=== PATIENT | female | born 1935 | race Caucasian/White ===

== ENCOUNTER 2016-11-29 13:53 | Emergency (ER) | payer MEDICARE ==
--- NOTE | 2016-11-29 14:31 | ER PHYSICIAN DOCUMENTATION ---
Physician Documentation [facility] Name:Sloane Gallardo Age:81 yrs Sex:Female :1935 Arrival Date:11/29/2016 Time:13:53 Bed6 Private MD:Dena Chinchilla ED, John Disposition: 11/29/16 14:18 Discharged to Home/Self Care. Impression: Back Sprain. - Condition is Good. - Discharge Instructions: BACK SPRAIN/STRAIN. - Prescriptions for Hydrocodone- Acetaminophen 5-325 mg Oral - take 1 tablet by ORAL route every 6 hours As needed; 15 tablet. - Medical Reconciliation form form. - Follow up: Dena Chinchilla DO; When: As needed; Reason: Continuance of care. - Problem is new. - Symptoms have improved. HPI: 11/29 14:00 This 81 yrs old Female presents to ER via Private Vehicle with complaints of jm Back Pain. 14:00 The patient presents with pain that is acute. The symptoms are located in the right jm subscapular area and right mid back. Onset: The symptoms/episode began/occurred 1 week(s) ago. The problem was sustained when lifting heavy object. Historical: - Allergies: PENICILLINS; Lidocaine; Celebrex; Vioxx; TETRACYCLINES; - Home Meds: 1. simvastatin 40 mg oral tab 1 tab once daily in the evening 2. carvedilol 6.25 mg oral tab 1 tab 2 times per day with food 3. spironolactone oral 4. Lasix 20 mg oral tab 1 tab once daily 5. nitroglycerin 0.4 mg sublingual subl 1 tab at the first sign of an attack; no more than 3 tabs are recommended within a 15 minute period. - PMHx: OSTEOPOROSIS; MIGRAINES; ANXIETY; ARTHRITIS; GERD; HYPERTENSION; Peripheral Neuropathy (October 07, 2015); HYPERTENSION; MYOCARDIAL INFARCTION; subdural hemorrhage; hypoxemia; Subdural Hematoma (October 27, 2015); Cervical Radiculopathy (October 12, 2015); New Onset Seizure (November 21, 2015); - PSHx: TONSILLECTOMY; Cardiac Stents placed; - Tetanus: < 10 years. - Ebola Screening: : Patient negative for fever greater than or equal to 101.5 degrees Fahrenheit, and additional compatible Ebola Virus Disease symptoms. - Immunization history: Flu Vaccine None. - Social history: Smoking status: Patient states was never smoker of tobacco. ROS: 14:00 Cardiovascular: Negative for chest pain. 14:00 Abdomen/GI: Negative for abdominal pain. 14:00 Back: Positive for pain at rest, pain with movement, radiated pain. Exam: 14:00 Constitutional: The patient appears alert, awake. 14:00 Back: pain, that is mild, of the right subscapular area and right mid back, vertebral tenderness, is not appreciated. Vital Signs: 14:17 BP 178 / 80; Pulse 62; Resp 17; Temp 98.1(O); Pulse Ox 95% on R/A; Weight 46.72 kg; rh Height 5 ft. 0 in. (152.40 cm); Pain 10/10; 14:17 Body Mass Index 20.12 (46.72 kg, 152.40 cm) rh MDM: 13:58 Patient medically screened. 16:09 Differential diagnosis: sprain. Data reviewed: vital signs, nurses notes, and as a result, I will discharge patient. Counseling: I had a detailed discussion with the patient and/or guardian regarding: the historical points, exam findings, and any diagnostic results supporting the discharge/admit diagnosis. Dispensed Medications: 14:29 Drug: HYDROcodone-acetaminophen 5 mg-325 mg 1 tabs; Route: PO; 14:29 Follow up: Response: No adverse reaction Signatures: Matteo Ritter MD MD jm Hofsess, Rachel
--- NOTE | 2016-11-29 14:31 | ER NURSING DOCUMENTATION ---
Nurse's Notes [facility] Name:Sloane Gallardo Age:81 yrs Sex:Female :1935 Arrival Date:11/29/2016 Time:13:53 Bed6 Private MD:Dena Chinchilla Diagnosis:Back Sprain Presentation: 11/29 13:58 Acuity: LIZZ 3 rh 14:12 Presenting complaint: Patient states: Pt was lifting a tomato box a week ago, she felt rh like she pulled a muscle on the right side of her rib cage below her right breast. Pt states the pain is constant and feels like a muscle cramp. Pt denies SOB. Transition of care: Home. 14:12 Method Of Arrival: Private Vehicle Triage Assessment: 14:16 General: Appears in no apparent distress, Behavior is cooperative. Pain: Complains of rh pain in diaphragm. Respiratory: Breath sounds are clear bilaterally. Denies shortness of breath. Derm: Skin is intact, is healthy with good turgor, Skin is pink, warm & dry. Musculoskeletal: Circulation, motion, and sensation intact Capillary refill < 3 seconds. Historical: - Allergies: PENICILLINS; Lidocaine; Celebrex; Vioxx; TETRACYCLINES; - Home Meds: 1. simvastatin 40 mg oral tab 1 tab once daily in the evening 2. carvedilol 6.25 mg oral tab 1 tab 2 times per day with food 3. spironolactone oral 4. Lasix 20 mg oral tab 1 tab once daily 5. nitroglycerin 0.4 mg sublingual subl 1 tab at the first sign of an attack; no more than 3 tabs are recommended within a 15 minute period. - PMHx: OSTEOPOROSIS; MIGRAINES; ANXIETY; ARTHRITIS; GERD; HYPERTENSION; Peripheral Neuropathy (October 07, 2015); HYPERTENSION; MYOCARDIAL INFARCTION; subdural hemorrhage; hypoxemia; Subdural Hematoma (October 27, 2015); Cervical Radiculopathy (October 12, 2015); New Onset Seizure (November 21, 2015); - PSHx: TONSILLECTOMY; Cardiac Stents placed; - Tetanus: < 10 years. - Ebola Screening: : Patient negative for fever greater than or equal to 101.5 degrees Fahrenheit, and additional compatible Ebola Virus Disease symptoms. - Immunization history: Flu Vaccine None. - Social history: Smoking status: Patient states was never smoker of tobacco. Screenin:18 Infectious Disease Risk None. Abuse screen: Denies threats or abuse. Denies injuries rh from another. Nutritional screening: No deficits noted. Assessment: 14:18 See Triage Assessment done by same RN. Vital Signs: 14:17 BP 178 / 80; Pulse 62; Resp 17; Temp 98.1(O); Pulse Ox 95% on R/A; Weight 46.72 kg; rh Height 5 ft. 0 in. (152.40 cm); Pain 10/10; 14:17 Body Mass Index 20.12 (46.72 kg, 152.40 cm) ED Course: 13:56 Patient arrived in ED. ama 13:56 Dena Chinchilla DO is Private Physician. ama 13:58 Carmelina Heaton is Primary Nurse. 13:58 Triage completed. 13:59 Matteo Ritter MD is Attending Physician. 14:10 Notified ED Physician of patient's arrival and chief complaint. Dr. Ritter notified. 14:17 Dena Chinchilla DO is Referral Physician. 14:18 Valuables Remains with patient Patient has correct armband on for positive rh identification. Placed in gown. Bed in low position. Call light in reach. Side rails up X 1. Family accompanied patient. Administered Medications: 14:29 Drug: HYDROcodone-acetaminophen 5 mg-325 mg 1 tabs; Route: PO; 14:29 Follow up: Response: No adverse reaction rh Outcome: 14:18 Discharge ordered by . 14:29 Discharged to home via wheelchair, with family. 14:29 Condition: improved 14:29 Discharge Assessment: Patient awake, alert and oriented x 3. No cognitive and/or functional deficits noted. Patient verbalized understanding of disposition instructions. 14:29 Discharge instructions given to patient, family, Instructed on discharge instructions, follow up and referral plans. medication usage, Demonstrated understanding of instructions, medications, Prescriptions given X 1. 14:30 Patient left the ED. 11/30 11:54 Discharge F/U Call: Spoke with: patient. other: Name: pt is still having back pain st and is having trouble with having increased pain before she can take the next pain med. pt was told she can use Motrin with the [place] to help with those times. Signatures: Twombly, Summer, RN Matteo Daigle MD MD jm Averdick, Andrew, Reg Reg josafat Heaton, Carmelina
== END 2016-11-29 14:31 | disposition home or self-care (01) ==
LOC: ER 13:53
DX: S23.9XXA Sprain of unspecified parts of thorax, initial encounter (principal); X50.0XXA Overexertion from strenuous movement or load, initial encounter; I10 Essential (primary) hypertension; Z79.899 Other long term (current) drug therapy
CPT/HCPCS: 99282; 99283

== ENCOUNTER 2016-12-03 19:20 | Emergency (ER) | payer MEDICARE ==
[2016-12-03 20:06] LABS: BLOOD UREA NITROGEN 22 mg/dL (7-17); CALCIUM 9.5 mg/dL (8.4-10.2); CHLORIDE 98 mmol/L (98-107); GLUCOSE 126 mg/dL (70-100); POTASSIUM 4.3 mmol/L (3.5-5.1); SODIUM 130 mmol/L (137-145)
[2016-12-03 20:20] LABS: TROPONIN I < 0.012 ng/mL (0.00-0.034)
[2016-12-03 20:35] LABS: HEMATOCRIT 39.7 % (36.0-48.0); HEMOGLOBIN 13.9 g/dL (12.0-16.0); MEAN CORPUS. HGB CONCENTRATION 34.9 g/dL (32.0-36.0); MEAN CORPUSCULAR HEMOGLOBIN 33.2 pg (29.0-35.0); RED BLOOD COUNT 4.18 X 10^6uL (4.20-6.10); RED CELL DISTRIBUTION WIDTH 11.3 % (11.5-14.5); WHITE BLOOD COUNT 8.1 X 10^3uL (3.9-10.7)
[2016-12-03 20:36] LABS: BASOPHILS 0.5 % (0.0-2.0); EOSINOPHILS 2.9 % (0.0-6.0); EOSINOPHILS# 0.2 X 10^3uL (0.0-0.4); LYMPHOCYTES 21.6 % (20.0-40.0); LYMPHOCYTES# 1.8 X 10^3uL (0.8-3.8); MEAN PLATELET VOLUME 8.3 fL (7.4-10.4); MONOCYTES 8.9 % (2.0-10.0); MONOCYTES# 0.7 X 10^3uL (0.2-1.0); NEUTROPHILS 66.1 % (54.0-75.0); NEUTROPHILS# 5.4 X 10^3uL (2.6-6.7); PLATELET COUNT 203 X 10^3uL (130-440)
[2016-12-03] MEDS ORDERED: FUROSEMIDE 20 MG/2 ML VIAL ONE (20:56)
--- NOTE | 2016-12-03 22:19 | ER PHYSICIAN DOCUMENTATION ---
Physician Documentation [facility] Name:Sloane Gallardo Age:81 yrs Sex:Female :1935 Arrival Date:12/03/2016 Time:19:20 Bed4 Private MD: Fareed Lackey Disposition: 12/03 20:32 Critical Care: not applicable. tl1 21:14 Chart complete. tl1 Disposition: 12/03/16 20:[address] [facility]. Diagnosis is CHF (Congestive Heart Failure). - Reason for transfer: Specialty. - Accepting physician is Jeny. - Condition is Fair. - Problem is new. - Symptoms have improved. COBRA Form completed? Yes Transfer - Mode of Transportation Ambulance HPI: 19:33 This 81 yrs old Female presents to ER via Private Vehicle with complaints of tl1 Shortness Of Breath. 20:51 The patient has shortness of breath at rest. Onset: The symptom(s)/episode tl1 began/occurred this morning. Duration: The symptoms are continuous. The patient's shortness of breath is aggravated by exertion, is alleviated by rest. Associated signs and symptoms: Pertinent positives: chest pain, Pertinent negatives: non-productive cough, productive cough, diaphoresis, dizziness, fever, hemoptysis, nausea, vomiting. She is not aware of any dietary indiscretion. She does have sharp, reproducible chest pain for the last 2 weeks since she tried to lift a heavy container of the purple carrots she has been trying to grow this summer. Denies f/c/s/n/v. No diaphoresis. Possible mild swelling bilaterally. No h/o or RF for DVT/PE.. Historical: - Allergies: PENICILLINS; Lidocaine; Celebrex; Vioxx; TETRACYCLINES; - Home Meds: 1. simvastatin 40 mg oral tab 1 tab once daily in the evening 2. carvedilol 6.25 mg oral tab 1 tab 2 times per day with food 3. spironolactone oral 4. Lasix 20 mg oral tab 1 tab once daily 5. nitroglycerin 0.4 mg sublingual subl 1 tab at the first sign of an attack; no more than 3 tabs are recommended within a 15 minute period. - PMHx: OSTEOPOROSIS; MIGRAINES; ANXIETY; ARTHRITIS; HYPERTENSION; GERD; HYPERTENSION; MYOCARDIAL INFARCTION; Peripheral Neuropathy (October 07, 2015); New Onset Seizure (November 21, 2015); hypoxemia; subdural hemorrhage; Subdural Hematoma (October 27, 2015); Cervical Radiculopathy (October 12, 2015); Back Sprain (November 29, 2016); - PSHx: TONSILLECTOMY; Cardiac Stents placed; - Tetanus: < 10 years. - Ebola Screening: : Patient negative for fever greater than or equal to 101.5 degrees Fahrenheit, and additional compatible Ebola Virus Disease symptoms. - Immunization history: Pneumococcal vaccine status is unknown, Flu Vaccine Flu Vaccine < 1 year. - Social history: Smoking status: Patient states was never smoker of tobacco. ROS: 21:05 Respiratory: Positive for dyspnea on exertion, shortness of breath, Negative for cough, tl1 hemoptysis, wheezing. 21:05 All other systems are negative. Exam: 21:05 Constitutional: This is a well developed, well nourished patient who is awake, alert, tl1 and in no acute distress. Head/Face: Normocephalic, atraumatic. Eyes: Pupils equal round and reactive to light, extra-ocular motions intact. Lids and lashes normal. Conjunctiva and sclera are non-icteric and not injected. Cornea within normal limits. Periorbital areas with no swelling, redness, or edema. 21:05 Neck: Trachea midline, no thyromegaly or masses palpated, and no cervical tl1 lymphadenopathy. Supple, full range of motion without nuchal rigidity, or vertebral point tenderness. No Meningismus. 21:05 Chest/axilla: Palpation: tenderness, that is mild, of the right lateral posterior chest and bilateral lower parasternal and xyphoid areas.. 21:05 Cardiovascular: Rate: normal, Rhythm: regular, Heart sounds: normal. 21:05 Cardiovascular: Edema: 1+ edema to level of left ankle and right ankle. 21:05 Respiratory: the patient does not display signs of respiratory distress, Respirations: normal, Breath sounds: rales, that are mild, are heard in the right posterior lower lobe, rhonchi, are not appreciated, wheezing, is not appreciated. 21:05 Abdomen/GI: Inspection: abdomen appears normal, Bowel sounds: normal, Palpation: abdomen is soft and non-tender. 21:05 Skin: Exam negative for acute changes. 21:05 Neuro: Exam negative for acute changes. Vital Signs: 19:22 BP 175 / 81 RA Sitting (auto/reg); Pulse 64 RA; Resp 18 S; Temp 98.5(O); Pulse Ox 83% em3 on R/A; Pain 9/10; 19:34 Pulse 64 RA; Pulse Ox 95% on 2 lpm NC; em3 20:45 BP 137 / 89; Pulse 68; Resp 14; Pulse Ox 94% 2 lpm ; Pain 0/10; mk4 22:16 BP 167 / 82; Pulse 79; Resp 19; Temp 98.4; Pulse Ox 97% 3 lpm ; Pain 0/10; mk4 MDM: 19:33 Patient medically screened. tl1 20:24 Test interpretation: by ED physician or midlevel provider: plain radiologic studies, tl1 ECG. Counseling: I had a detailed discussion with the patient and/or guardian regarding: the historical points, exam findings, and any diagnostic results supporting the discharge/admit diagnosis, lab results, radiology results, the need for further work-up and treatment in the hospital. ECG:. 21:11 Antibiotic administration: Not indicated. The patient's pulmonary embolism risk score tl1 was calculated as follows: No Risks (0 Pts). Data reviewed: vital signs, nurses notes, old medical records, lab test result(s), cardiac enzymes, CBC, electrolytes, hepatic panel, urinalysis, D dimer, BNP, EKG, radiologic studies, plain films, and as a result, I will *Transfer Patient. Data interpreted: farm equipment service technician: Pulse oximetry: on room air is 86 %. Response to treatment: the patient's symptoms have mildly improved after treatment. Physician consultation: Dr Chana Fermin was called at 20:50, was contacted at 20:54, regarding admission, patient's condition, and will see patient in inpatient room, at [facility]. 12/03 20:10 Order name: BASIC METABOLIC PANEL; Complete Time: 20:40 EDMS 12/03 20:13 Interpretation: SODIUM 130; POTASSIUM 4.3; CHLORIDE 98; CARBON DIOXIDE 20; GLUCOSE 126; tl1 BLOOD UREA NITROGEN 22; CREATININE 0.8; CALCIUM 9.5. 12/03 20:21 Order name: BNP,NT-PRO; Complete Time: 20:40 EDMS 12/03 20:33 Interpretation: Abnormal: BNP,NT-PRO 5500. tl1 12/03 20:21 Order name: TROPONIN I; Complete Time: 20:40 EDAK 12/03 20:33 Interpretation: Normal: TROPONIN I < 0.012. 1 12/03 20:33 Order name: DDIMER; Complete Time: 20:50 EDAK 12/03 20:50 Interpretation: Abnormal: DDIMER 257. 1 12/03 20:40 Order name: CBC AUTO DIF, MDIF/RMOR IF IND; Complete Time: 20:50 [facility] 12/04 03:42 Interpretation: WHITE BLOOD COUNT 8.1; HEMOGLOBIN 13.9; HEMATOCRIT 39.7; PLATELET COUNT tl1 203. 12/05 08:37 Order name: CXR 2V [id number] [facility] 12/03 19:35 Order name: 12-lead EKG; Complete Time: 19:40 [facility] 12/03 19:35 Order name: Continuous Cardiac Monitoring; Complete Time: 19:40 [facility] 12/03 19:35 Order name: I & O; Complete Time: 19:40 [facility] 12/03 19:35 Order name: Iv Saline Lock; Complete Time: 19:40 [facility] 12/03 19:35 Order name: Oxygen; Complete Time: 19:40 [facility] 12/03 19:35 Order name: Pulse Ox Continuous; Complete Time: 19:40 tl1 EC:26 Rate is 65 beats/min. Rhythm is regular. QRS [place] is Normal. [place] interval is normal at tl1 183 msec. QRS interval is normal at 96 msec. QT interval is normal at 455 msec. Q waves are Present in leads III, aVF, V1, V3. T waves are Normal. No ST changes noted. 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 No acute ischemic changes. Interpreted by me. Reviewed by me. Dispensed Medications: 20:46 Drug: Lasix 20 mg; Route: IVP; Rate: 20 bolus; Infused Over: 2 mins; Site: right hand; [facility] 12/04 02:14 Follow up: Response: No adverse reaction; Wheezing diminished 4 Signatures: Reena Hagan 4 Fareed Murphy MD MD tl1 Carmelina Heaton
--- NOTE | 2016-12-03 22:19 | ER NURSING DOCUMENTATION ---
Nurse's Notes [facility] Name:Sloane Gallardo Age:81 yrs Sex:Female :1935 Arrival Date:12/03/2016 Time:19:20 Bed4 Private MD: Diagnosis:CHF (Congestive Heart Failure) Presentation: 12/03 19:21 Acuity: LIZZ 2 19:28 Presenting complaint: Patient states: PT hurt her back over a week ago lifting heavy rh pots. She was seen in the ED and given pain medication. Pt today c/o SOB that began this AM which has become worse throughout the day. PT room air was 83%. Transition of care: Home. 19:28 Method Of Arrival: Private Vehicle Triage Assessment: 19:30 General: Appears in no apparent distress, Behavior is cooperative. Pain: Complains of rh pain in right lateral anterior chest. EENT: Oral mucosa is moist. Neuro: Level of Consciousness is awake, alert, obeys commands. Cardiovascular: Capillary refill < 3 seconds Chest pain is denied. Respiratory: Airway is patent Respiratory effort is even, unlabored, Breath sounds with crackles in right posterior middle lobe and right posterior lower lobe Reports shortness of breath at rest the patient has mild shortness of breath. GI: Denies nausea. : No deficits noted. Derm: Skin is intact, is healthy with good turgor, Skin is pink, warm & dry. Musculoskeletal: Circulation, motion, and sensation intact Range of motion intact in all extremities. Historical: - Allergies: PENICILLINS; Lidocaine; Celebrex; Vioxx; TETRACYCLINES; - Home Meds: 1. simvastatin 40 mg oral tab 1 tab once daily in the evening 2. carvedilol 6.25 mg oral tab 1 tab 2 times per day with food 3. spironolactone oral 4. Lasix 20 mg oral tab 1 tab once daily 5. nitroglycerin 0.4 mg sublingual subl 1 tab at the first sign of an attack; no more than 3 tabs are recommended within a 15 minute period. - PMHx: OSTEOPOROSIS; MIGRAINES; ANXIETY; ARTHRITIS; HYPERTENSION; GERD; HYPERTENSION; MYOCARDIAL INFARCTION; Peripheral Neuropathy (October 07, 2015); New Onset Seizure (November 21, 2015); hypoxemia; subdural hemorrhage; Subdural Hematoma (October 27, 2015); Cervical Radiculopathy (October 12, 2015); Back Sprain (November 29, 2016); - PSHx: TONSILLECTOMY; Cardiac Stents placed; - Tetanus: < 10 years. - Ebola Screening: : Patient negative for fever greater than or equal to 101.5 degrees Fahrenheit, and additional compatible Ebola Virus Disease symptoms. - Immunization history: Pneumococcal vaccine status is unknown, Flu Vaccine Flu Vaccine < 1 year. - Social history: Smoking status: Patient states was never smoker of tobacco. Screenin:31 Infectious Disease Risk None. Abuse screen: Denies threats or abuse. Denies injuries rh from another. Nutritional screening: No deficits noted. Assessment: 19:31 See Triage Assessment done by same RN. rh Vital Signs: 19:22 BP 175 / 81 RA Sitting (auto/reg); Pulse 64 RA; Resp 18 S; Temp 98.5(O); Pulse Ox 83% em3 on R/A; Pain 9/10; 19:34 Pulse 64 RA; Pulse Ox 95% on 2 lpm NC; em3 20:45 BP 137 / 89; Pulse 68; Resp 14; Pulse Ox 94% 2 lpm ; Pain 0/10; mk4 22:16 BP 167 / 82; Pulse 79; Resp 19; Temp 98.4; Pulse Ox 97% 3 lpm ; Pain 0/10; mk4 ED Course: 19:21 Patient arrived in ED. jt 19:21 Triage completed. rh 19:22 Oxygen Oxygen administration via nasal cannula @ 2L/min. em3 19:26 EKG done. (by ED staff). Reviewed by Fareed Murphy MD. em3 19:28 Carmelina Heaton is Primary Nurse. rh 19:28 school lunch monitor on. Pulse ox on. NIBP on. rh 19:31 Notified ED Physician of patient's arrival and chief complaint. Dr. Murphy notified. rh 19:31 Valuables Remains with patient Patient has correct armband on for positive rh identification. Placed in gown. 19:33 Fareed Murphy MD is Attending Physician. tl1 19:40 Patient moved to radiology. zahira 19:45 Allergy Band Placed Arm band placed on Bed in low position Call Light in Reach Gowned mk4 Side rails up x2. Family accompanied patient. EKG done per protocol. Labs ordered per protocol. X-ray done. 19:51 Inserted peripheral IV: 22 gauge in right hand and blood collected. mk4 20:03 Patient moved back from radiology. zahira 21:04 Assisted to bathroom. em3 Administered Medications: 20:46 Drug: Lasix 20 mg; Route: IVP; Rate: 20 bolus; Infused Over: 2 mins; Site: right hand; mk4 12/04 02:14 Follow up: Response: No adverse reaction; Wheezing diminished mk4 Outcome: 12/03 20:45 ER care complete, transfer ordered by . tl1 22:11 Transferred: [facility] 22:16 Transferred: Patient will be transferred to: [facility]. Facility mk4 Acceptance Time: December 03, 2016 at 22:17 Patient's face sheet was faxed to accepting facility. Face Sheet included patient's name, address, age, gender, contact information and insurance information. Patient will be transported by: [facility] ground. Report called to: Whitney VOGEL Nurse and Physician Charting and Notes were sent to Accepting Facility. All tests and/or procedures with results, if applicable, were sent to accepting facility. 22:16 Condition: good 22:16 Discharge Assessment: Patient awake, alert and oriented x 3. No cognitive and/or functional deficits noted. Patient verbalized understanding of disposition instructions. 22:18 Patient left the ED. 4 Signatures: Rosalba Farmer Eric em3 Reena Hagan 4 Fareed Murphy MD MD tl1 Carmelina Heaton Joanne jt
[2016-12-04] MEDS ORDERED: DIPHENHYDRAMINE 50 MG/ML VIAL ONE (00:31)
[2016-12-04] MEDS ORDERED: FENTANYL 100 MCG/2 ML VIAL ONE (00:31)
[2016-12-04] MEDS ORDERED: NALOXONE HCL 2 MG/2 ML SYR ONE (00:32)
--- NOTE | 2016-12-05 07:34 | RADIOLOGY REPORT ---
Two views of the chest are compared with prior films dated 11/21/2015. The cardiac silhouette is now mildly enlarged. The central pulmonary vasculature is congested. Bilateral Naty B lines. There has been development of a small amount of bilateral pleural fluid. No infiltrate or pneumothorax is seen. IMPRESSION: Findings are consistent with a degree of congestive failure. MTDD
== END 2016-12-03 22:19 | disposition short-term general hospital (02) ==
LOC: ER 19:20
DX: I50.20 Unspecified systolic (congestive) heart failure (principal); R06.00 Dyspnea, unspecified; R06.02 Shortness of breath; R60.0 Localized edema; R79.1 Abnormal coagulation profile; R74.8 Abnormal levels of other serum enzymes; I25.2 Old myocardial infarction; Z95.5 Presence of coronary angioplasty implant and graft; I10 Essential (primary) hypertension; Z79.899 Other long term (current) drug therapy; Z99.89 Dependence on other enabling machines and devices; Z99.81 Dependence on supplemental oxygen; Z74.3 Need for continuous supervision
CPT/HCPCS: 71020; 80048; 83880; 84484; 85025; 85379; 93005; 96374; 99285; A0425; A0427; J1200; J1940; J2310; J3010